=== PATIENT | male | born 1990 | race Caucasian/White ===

== ENCOUNTER 2017-07-30 11:12 | Emergency (ER) | payer BC ==
[2017-07-30 11:24] VITALS: BP 124/56
--- NOTE | 2017-07-30 11:34 | EDPHY ---
H & P Stated Complaint: diarrhea/nausea abd pain x 4 days/(girlfriend had same earlier ) Time Seen by Provider: 07/30/17 11:34 - Personal History Current Tetanus/Diphtheria Vaccine: Unsure - Medical/Surgical History Hx Asthma: No Hx Chronic Respiratory Disease: No Hx Diabetes: No Hx Cardiac Disease: No Hx Renal Disease: No Hx Cirrhosis: No Hx Alcoholism: No Hx HIV/AIDS: No Hx Splenectomy or Spleen Trauma: No Other PMH: denies - Social History Smoking Status: Never smoked Constitutional: Initial Vital Signs Temperature (C) 37.4 C 07/30/17 11:22 Heart Rate 96 07/30/17 11:22 Respiratory Rate 16 07/30/17 11:22 Blood Pressure 124/56 H 07/30/17 11:22 O2 Sat (%) 97 07/30/17 11:22 O2 Delivery Mode Room Air Allergies/Adverse Reactions: No Known Allergies Allergy (Unverified 07/30/17 11:22) Home Medications: Medication Instructions Recorded NK [No Known Home Meds] 07/30/17 Medical Decision Making ED Course/Re-evaluation: CHIEF COMPLAINT: Diarrhea HISTORY OF PRESENT ILLNESS: Diarrhea x3 days. His significant other also had diarrhea nausea vomiting. He caught it a few days later. He was concerned that he still having significant gas cramps despite the fact that the frequency of his diarrhea has decreased tremendously. Yesterday he went between 6 and 8 times and today he has only gone once. He denies any nausea vomiting he is able to hydrate he is able to urinate he is not immunocompromised does not take any medicines. REVIEW OF SYSTEMS: A 10 point review of systems was performed and is negative with the exception of the elements mentioned in the history of present illness. PHYSICAL EXAM: HR, BP, O2 Sat, RR. Temp noted General Appearance: Alert, well hydrated, appropriate, and non-toxic appearing. Head: Atraumatic without scalp tenderness or obvious injury Eyes: Pupils equal, round, reactive to light and accommodation, EOMI, no trauma , no injection. Ears: Clear bilaterally, no perforation, normal landmarks Nose: Atraumatic, no rhinorrhea, clear. Throat: There is no erythema or exudates, no lesions, normal tonsils, mucus membranes moist. Neck: Supple, 2+ carotid upstroke, nontender, no lymphadenopathy. Respiratory: No retractions, no distress, no wheezes, and no accessory muscle use. Lungs are clear to auscultation bilaterally. Cardiovascular: Regular rate and rhythm, no murmurs, rubs, or gallops. Bilateral carotid, radial, dorsalis pedis, and posterior tibial pulses intact. Good capillary refill all extremities. Gastrointestinal: Abdomen is soft, nontender, non-distended, no masses, no rebound, no guarding, no peritoneal signs. Musculoskeletal: Normal active ROM of all extremities, atraumatic. Neurological: Alert, appropriate, and interactive. The patient has normal DTRs and non-focal cranial nerves, motor, sensory, and cerebellar exam. Skin: No rashes, good turgor, no nodules on palpation. Past medical history: Denies Past surgical history: Denies Family history: Noncontributory Social history: Single, employed, does not abuse tobacco drugs or alcohol DIAGNOSTICS/PROCEDURES/CRITICAL CARE TIME: Not warranted this patient is completely benign abdomen DIFFERENTIAL DIAGNOSIS: The differential diagnosis for the patient's diarrhea included but was not limited to gastroenteritis, gastritis, appendicitis, and medication side effect. MEDICAL DECISION MAKING: This patient has a fairly classic gastroenteritis. His significant other had the exact same thing and it has resolved. His is getting better. He has a benign abdomen. I had a long discussion with him about the utility of doing laboratory studies and imaging and I do not believe it is warranted in this patient. He will continue to hydrate and he will return if he is not better. Departure - Departure Disposition: Home, Routine, Self-Care Clinical Impression: Acute gastroenteritis Condition: Good Instructions: Gastroenteritis (ED) Referrals: NONE *PRIMARY CARE P,. [Primary Care Provider] - As per Instructions
== END 2017-07-30 11:58 | disposition home or self-care (01) ==
DX: K52.9 Noninfective gastroenteritis and colitis, unspecified (principal)